=== PATIENT | male | born 1990 | race Caucasian/White ===

== ENCOUNTER 2018-06-05 12:21 | Emergency (ER) | payer BC, OTHER ==
[2018-06-05 12:53] VITALS: TEMP 98.7; BMI 22.8
[2018-06-05] MEDS ORDERED: SODIUM CHLORIDE 1,000 ML IV STA (13:41)
--- NOTE | 2018-06-05 13:41 | PDOC ---
History of Present Illness - General Chief Complaint: Cold Symptoms Stated Complaint: COUGH Time Seen by Provider: 06/05/18 12:50 - History of Present Illness Initial Comments: 06/05/18 14:03 Chief complaint: Cough History of present illness: Cough and congestion for 1 week, seen last night at [facility], where x-ray revealed bilateral pneumonia according to the patient. He was admitted, given 1 dose of intravenous Zithromax, and then signed out of the hospital because his roommate was disruptive. He states that he had a high fever when the illness began one week ago, was seen in urgent care center and treated with Tamiflu, even though he had a negative flu test. The Tamiflu did not seem to help. His fever has subsided but his cough persists Review of systems: Denies fever/chills, headache, sore throat, chest pain, abdominal pain, nausea, vomiting, diarrhea, visual or focal neurologic symptoms , unsteadiness of gait. Admits productive cough. Past medical history: Denies asthma or other lung disease. Denies cardiac disease or diabetes. Had a cervical spine fusion for neck pain and a craniotomy for Chiari syndrome in 2010. No neurological residual Social history: One pack a day smoker. Occasional social alcohol. Denies drugs. with stable home and family. 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 Abdomen soft nontender without mass or organomegaly Neurological intact Skin clear, no rash, adequate turgor but mucous membranes are somewhat dry. Impression: Community-acquired pneumonia, probably atypical or viral, unlikely influenza, appears to be improving. Respiratory status stable Plan: Intravenous hydration, CBC and chemistries, antibiotics, and further treatment depending on results. Past History - Past Medical History Allergies/Adverse Reactions: Allergies Allergy/AdvReac Type Severity Reaction Status Date / Time codeine [Codeine] Allergy Difficulty Verified 06/05/18 12:22 Breathing Penicillins Allergy Rash Verified 06/05/18 12:22 Home Medications: Ambulatory Orders Guaifenesin Dm [Robitussin Dm -] 10 ml PO Q4H PRN #90 ml 06/05/18 COPD: No - Surgical History Neurologic Surgery: Yes (AVM MALFORMATION) - Immunization History Td Vaccination: Yes (2 YEARS AGO) Immunization Up to Date: Yes - Suicide/Smoking/Psychosocial Hx Smoking Status: Yes Smoking History: Current every day smoker Have you smoked in the past 12 months: Yes Number of Cigarettes Smoked Daily: 20 Information on smoking cessation initiated: Yes 'Breaking Loose' booklet given: 06/05/18 Substance Use Type: None *Physical Exam - Vital Signs Last Vital Signs Temp Pulse Resp BP Pulse Ox 98.7 F 90 20 118/77 97 06/05/18 12:21 06/05/18 12:21 06/05/18 12:21 06/05/18 12:21 06/05/18 12:21 ED Treatment Course - LABORATORY CBC & Chemistry Diagram: 06/05/18 14:17 06/05/18 14:00 Medical Decision Making - Medical Decision Making 06/05/18 16:29 White blood count 11.1. Remainder of CBC and chemistries without significant abnormalities. IV hydration and second dose of azithromycin were administered. The patient remained stable, without fever or shortness of breath, without tachypnea or dyspnea. Discharged to continue antibiotics as an outpatient and follow-up with primary physician. *DC/Admit/Observation/Transfer Diagnosis at time of Disposition: Community acquired pneumonia Qualifiers: Laterality: unspecified laterality Qualified Code(s): J18.9 - Pneumonia, unspecified organism - Discharge Dispostion Disposition: HOME Condition at time of disposition: Stable Decision to Admit order: No - Prescriptions Prescriptions: Guaifenesin Dm [Robitussin Dm -] 10 ml PO Q4H PRN #90 ml PRN Reason: Cough - Referrals - Patient Instructions Printed Discharge Instructions: DI for Pneumonia -- Adult - Post Discharge Activity Forms/Work/School Notes: Back to Work
[2018-06-05] MEDS ORDERED: AZITHROMYCIN IVPB 250 MG in DEXTROSE 5%-WATER - 250 ML IVPB ONE (13:42)
[2018-06-05] MEDS ORDERED: AZITHROMYCIN 500 MG VIAL IVPB ONE (14:11)
[2018-06-05 14:28] LABS: BASO % 0.1 % (0-2.0); EOS % 0.1 % (0-4.5); HEMATOCRIT 44.5 % (35.4-49); HEMOGLOBIN 14.8 GM/dl (11.7-16.9); LYMPH % 8.6 % (8-40); MCH 28.3 pg (25.7-33.7); MCHC 33.2 g/dl (32.0-35.9); MEAN PLT VOLUME 8.5 fl (7.5-11.1); MONO % 6.8 % (3.8-10.2); NEUT % 84.4 % (42.8-82.8); PLATELET COUNT 445 K/MM3 (134-434); RBC 5.23 M/mm3 (4.00-5.60); RDW 12.2 % (11.9-15.9); WHITE BLOOD COUNT 11.1 K/mm3 (4.0-10.8)
[2018-06-05 14:41] LABS: ALBUMIN 3.6 g/dl (3.5-5.0); ALK PHOS 69 U/L (32-92); ANION GAP 12 MMOL/L (8-16); BILIRUBIN,TOTAL 0.4 mg/dl (0.2-1.0); BLOOD UREA NITROGEN 9 mg/dl (7-18); CALCIUM 9.2 mg/dl (8.4-10.2); CHLORIDE 99 mmol/L (98-107); CO2 26 mmol/L (22-28); CREATININE 0.6 mg/dl (0.6-1.3); GLUCOSE,RANDOM 96 mg/dl (74-106); POTASSIUM 4.4 mmol/L (3.5-5.1); SGOT/AST 35 U/L (10-42); SGPT/ALT 33 U/L (10-40); SODIUM 137 mmol/L (136-145)
[2018-06-05 15:54] VITALS: BP 123/71; PULSE 87
== END 2018-06-05 15:50 | disposition home or self-care (01) ==
LOC: FER 12:21
PROC: 3E03329 Introduction of Other Anti-infective into Peripheral Vein, Percutaneous Approach (ICD-10-PCS; principal; 2018-06-05)
PROC: 3E0337Z Introduction of Electrolytic and Water Balance Substance into Peripheral Vein, Percutaneous Approach (ICD-10-PCS; 2018-06-05)
DX: J18.9 Pneumonia, unspecified organism (principal); F17.210 Nicotine dependence, cigarettes, uncomplicated; Q27.30 Arteriovenous malformation, site unspecified
CPT/HCPCS: 36415; 80053; 85025; 99282-25; J7030